=== PATIENT | female | born 2000 | race Hispanic/Latino ===

== ENCOUNTER 2023-02-07 05:36 | Day surgery (SDC) | payer OTHER ==
[2023-02-07 05:55] VITALS: BMI 23.0
[2023-02-07] MEDS ORDERED: hydrALAZINE 20 MG/ML VIAL SLOW IVP PRN (06:21)
[2023-02-07 09:06] LABS: Bilirubin Neg (Negative); Blood, Urine 250 (Negative); Glucose, Urine (Dipstick) Normal (Negative); Ketone, Urine 50 mg/dL (Negative); Leukocyte 500 (Negative); Nitrite Negative (Negative); Protein, Urine (Dipstick) 100 mg/dl (Neg-Trace); Urobilinogen Normal mg/dL (Less than 2)
[2023-02-07 09:07] LABS: Clarity Clear (Clear)
[2023-02-07 09:15] LABS: Bacteria/HPF 3+ HPF (None Seen); CAUTI Indications for Culture Pregnancy; Squamous Epithelial 0-3 HPF (0-3); WBC/HPF 21-50 HPF (0-3)
[2023-02-07 09:17] LABS: Urine Culture Reflex Yes Yes
== END 2023-02-07 12:34 | disposition home health service (06) ==
LOC: CSHLD/OP 05:36
PROVIDERS: ATTEND Family Medicine
DX: O99.891 Other specified diseases and conditions complicating pregnancy (principal); R10.31 Right lower quadrant pain; Z3A.25 25 weeks gestation of pregnancy
CPT/HCPCS: 76770; 80053; 81001; 83690; 83735; 85025; 87077; 87086

== ENCOUNTER 2023-05-22 | Inpatient (IN) | payer MEDICAID | END 2023-05-25 14:40 | disposition home or self-care (01) | DRG 806 | PROVIDERS: ADMIT Obstetrics & Gynecology | PROC: 10E0XZZ Delivery of Products of Conception, External Approach (ICD-10-PCS; principal; 2023-05-22) | PROC: 0KQM0ZZ Repair Perineum Muscle, Open Approach (ICD-10-PCS; 2023-05-22) | PROC: 3E033VJ Introduction of Other Hormone into Peripheral Vein, Percutaneous Approach (ICD-10-PCS; 2023-05-22) | DX: O99.02 Anemia complicating childbirth (principal); N39.0 Urinary tract infection, site not specified; Z37.0 Single live birth; O23.43 Unspecified infection of urinary tract in pregnancy, third trimester; D64.9 Anemia, unspecified; Z3A.40 40 weeks gestation of pregnancy; O48.0 Post-term pregnancy; O70.1 Second degree perineal laceration during delivery; B96.20 Unspecified Escherichia coli [E. coli] as the cause of diseases classified elsewhere ==